=== PATIENT | female | born 1995 | race American Indian/Alaskan Native ===

== ENCOUNTER 2017-03-08 18:38 | Emergency (ER) | payer MEDICAID ==
[2017-03-08 18:50] VITALS: BP 106/64
[2017-03-08 19:38] LABS: Hematocrit 32.1 % (30.3-42.9); Hemoglobin 10.7 gm/dl (10.1-14.3); Mean Corpuscular HGB Conc 33 % (30-34); Mean Corpuscular Hemoglobin 30 pg (28-32); Mean Corpuscular Volume 90 fl (79-97); Platelet Count 208 K/mm3 (140-440); Red Blood Count 3.58 M/mm3 (3.65-5.03); Red Cell Distribution Width 13.2 % (13.2-15.2); White Blood Count 6.8 K/mm3 (4.5-11.0)
[2017-03-08 19:46] LABS: Anion Gap 16 mmol/L; Blood Urea Nitrogen 12 mg/dL (7-17); Calcium 8.3 mg/dL (8.4-10.2); Carbon Dioxide 23 mmol/L (22-30); Chloride 100.8 mmol/L (98-107); Glucose 90 mg/dL (65-100); Potassium 3.7 mmol/L (3.6-5.0); Sodium 136 mmol/L (137-145)
[2017-03-08 19:50] LABS: Bilirubin,Urine NEG (Negative); Blood,Urine NEG (Negative); Ketones,Urine NEG (Negative); Leukocyte Esterase,Urine NEG (Negative); Mucus,Urine FEW /HPF; Nitrite,Urine NEG (Negative); Protein,Urine <15 mg/dL mg/dL (Negative)
--- NOTE | 2017-03-08 20:12 | Ultrasound Report ---
FINAL REPORT EXAM: US OB \T\gt; = 14 WEEKS FETUS HISTORY: 19weeks preg with pain and vag bleed COMPARISONS: No recent comparisons from current FINDINGS: Transabdominal grayscale, color Doppler and M-mode ultrasound evaluation of the uterus Single living intrauterine in cephalic position with recorded cardiac activity of 145 beats per minute. Amniotic fluid volume is subjectively normal. Cervical length is approximately 3.3 cm, and the cervix appears closed. Anterior placenta. No placental abnormality identified. Biparietal diameter is approximately 4 cm. Head circumference is approximately 15.7 cm Abdominal circumference is approximately 13.6 cm Femoral length is approximately 2.8 cm Composite of measurements results estimated gestational age of 18 weeks 4 days and delivery date of 08/05/2017. IMPRESSION: Single living intrauterine without evident complication. Consider additional imaging for worsening/persistent symptoms. Short interval follow-up for detailed anatomy scan is suggested.
--- NOTE | 2017-03-12 07:06 | ED Elopement Review ---
ED Pt Elopement review - Results review Lab results: Laboratory Tests 03/08/17 03/08/17 03/08/17 19:02 19:02 19:02 WBC 6.8 RBC 3.58 L Hgb 10.7 Hct 32.1 MCV 90 MCH 30 MCHC 33 RDW 13.2 Plt Count 208 Sodium 136 L Potassium 3.7 Chloride 100.8 Carbon Dioxide 23 Anion Gap 16 BUN 12 Creatinine 0.6 L Estimated GFR > 60 BUN/Creatinine Ratio 20.00 Glucose 90 Calcium 8.3 L HCG, Quant 8746 H Urine Color Urine Turbidity Urine pH Ur Specific [place] Urine Protein Urine Glucose (UA) Urine Ketones Urine Blood Urine Nitrite Urine Bilirubin Urine Urobilinogen Ur Leukocyte Esterase Urine WBC (Auto) Urine RBC (Auto) U Epithel Cells (Auto) Urine Mucus Blood Type Antibody Screen JEREL Antibody Screen Ord Rhogam Gestat Weeks 03/08/17 03/08/17 19:02 Unknown WBC RBC Hgb Hct MCV MCH MCHC RDW Plt Count Sodium Potassium Chloride Carbon Dioxide Anion Gap BUN Creatinine Estimated GFR BUN/Creatinine Ratio Glucose Calcium HCG, Quant Urine Color Yellow Urine Turbidity Clear Urine pH 6.0 Ur Specific [place] 1.025 Urine Protein <15 mg/dl Urine Glucose (UA) Neg Urine Ketones Neg Urine Blood Neg Urine Nitrite Neg Urine Bilirubin Neg Urine Urobilinogen 2.0 Ur Leukocyte Esterase Neg Urine WBC (Auto) 3.0 Urine RBC (Auto) 1.0 U Epithel Cells (Auto) 4.0 Urine Mucus Few Blood Type B POSITIVE Antibody Screen TNR JEREL Antibody Screen Negative Ord [facility] pos - Call Back decision Pt Call Back Decision: No action required
== END 2017-03-08 22:25 | disposition left against medical advice (07) ==
LOC: ED 18:38
DX: O26.892 Other specified pregnancy related conditions, second trimester (principal); R10.9 Unspecified abdominal pain; Z3A.19 19 weeks gestation of pregnancy; Z53.21 Procedure and treatment not carried out due to patient leaving prior to being seen by health care provider
CPT/HCPCS: 36415; 76805; 80048; 81001; 84702; 85027; 86850; 86900; 86901